=== PATIENT | female | born 2000 ===

== ENCOUNTER 2020-07-19 13:31 | Emergency (ER) | payer OTHER ==
[2020-07-19 13:44] VITALS: BP 137/100
--- NOTE | 2020-07-19 14:38 | ER Document Report ---
ED Extremity Problem, Lower - General Chief Complaint: Ankle Injury Stated Complaint: RIGHT AND LEFT ANKLE PAIN Time Seen by Provider: 07/19/20 14:24 Primary Care Provider: KRANTHI FRANZ MD [ACTIVE STAFF] - Follow up as needed Information source: Patient Notes: Patient is a 20-year-old female comes emergency room complaint of bilateral ankle and foot pain. Patient states that last night she was in a good mood she was dancing and jumping up and down on the bed she decided to jump off the bed and landed on both feet and ankles and felt a crack in her ankles. Patient states it hurt last night but she thought she go to bed and wake up this morning fine but when she got out of bed she fell to the floor because of the severe pain and discomfort. Patient states that the left ankle is worse than the right ankle. She did go to a walk-in clinic where they Justino wrapped her ankle but told her that she needed to go to ER because there radiology machine was unable to do the x-rays a needed because she had to stand for it. Patient denies any other injuries. She denies any other medical problems. TRAVEL OUTSIDE OF THE [place] IN LAST 30 DAYS: No - HPI Patient complains to provider of: Injury, Pain, Swelling Location: Ankle, Foot Occurred: This evening Where: Home Onset/Duration: Sudden, Persistent, Worse Quality of pain: Pressure, Sharp, Throbbing Severity: Severe Pain Level: 4 Context: Barefoot Recent injury: Yes Associated symptoms: [place] a crack, Unable to bear weight Exacerbated by: Movement, Walking Relieved by: Nothing - Related Data Allergies/Adverse Reactions: Penicillins Allergy (Verified 07/19/20 14:25) Past Medical History - General Information source: Patient - Social History Smoking Status: Never Smoker Frequency of alcohol use: None Drug Abuse: None Lives with: Family Family History: Reviewed & Not Pertinent Review of Systems - Review of Systems Constitutional: No symptoms reported EENT: No symptoms reported Cardiovascular: No symptoms reported Respiratory: No symptoms reported Gastrointestinal: No symptoms reported Genitourinary: No symptoms reported Female Genitourinary: No symptoms reported Musculoskeletal: See HPI, Joint pain, Joint swelling, Ankle swelling Skin: No symptoms reported Hematologic/Lymphatic: No symptoms reported Neurological/Psychological: No symptoms reported -: Yes All other systems reviewed and negative Physical Exam - Vital signs Vitals: Temp Pulse Resp BP Pulse Ox 98.3 F 119 H 16 137/100 H 98 07/19/20 13:43 07/19/20 13:43 07/19/20 13:43 07/19/20 13:43 07/19/20 13:43 Interpretation: Hypertensive, Tachycardic - Notes Notes: PHYSICAL EXAMINATION: GENERAL: Patient is a well-nourished well-developed 20-year-old female no apparent distress but does appear uncomfortable. HEAD: Atraumatic, normocephalic. EYES: Pupils equal round and reactive to light, extraocular movements intact, conjunctiva are normal. LUNGS: Breath sounds clear to auscultation bilaterally and equal. No wheezes rales or rhonchi. HEART: Regular rate and rhythm without murmurs Musculoskeletal: Examination patient very concerned bilateral ankles and feet. Examination shows the left ankle to be more swollen and tender than the right side. Patient displays good dorsalis pedal pulses bilaterally as well as good posterior tibial pulses bilaterally patient also displays good cap refill in the nailbeds of both feet. Mild tenderness noted on the low left ankle with swelling noted circumferentially with increased on the lateral aspect of the malleolus. Patient has limited flexion extension at this time secondary to swelling and pain. Right is much less more swollen again on the lateral malleoli are area there is mild edema with mild tenderness to palpation on the anterior proximal portion of the foot down into the lateral malleoli are area. Again patient has limited range of motion on the side secondary to swelling as well. NEUROLOGICAL: Exercises given reps normal speech, normal gait. Normal sensory, motor exams PSYCH: Normal mood, normal affect. SKIN: Warm, Dry, normal turgor, no rashes or lesions noted. Course - Re-evaluation Re-evalutation: 07/19/20 16:57 Patient's x-rays were negative for any acute findings. However given that the swelling on the left side is prominent I still feel there is a possibility of some ligament or tendon damage. I am putting her in a posterior OCL short leg Ortho-Glass along with a stirrup splint Ortho-Glass on that foot for stability. We will go ahead and Justino wrap the right side at this time. We will attempt to have her use crutches to see how she does. I am giving the name of the orthopedist on-call to contact his office if after 3 days she is unable to still bear weight. - Vital Signs Vital signs: Temp Pulse Resp BP Pulse Ox 98.3 F 119 H 16 137/100 H 98 07/19/20 13:43 07/19/20 13:43 07/19/20 13:43 07/19/20 13:43 07/19/20 13:43 - Laboratory Results Critical Laboratory Results Reviewed: No Critical Results - Radiology Results Critical Radiology Results Reviewed: No Critical Results Procedures - Immobilization Left Ankle Time completed: 16:58 Pre-Proc Neuro Vasc Exam: Normal Immobilizer type: Ankle stirrup, Short Leg Posterior Performed by: PCT Post-Proc Neuro Vasc Exam: Normal Alignment checked and good: Yes Right Ankle Time completed: 16:58 Pre-Proc Neuro Vasc Exam: Normal Immobilizer type: Justino wrap Performed by: PCT Post-Proc Neuro Vasc Exam: Normal Alignment checked and good: Yes Discharge - Discharge Clinical Impression: History of sprain of both ankles Condition: Stable Disposition: HOME, SELF-CARE Instructions: Justino Wrap ([facility]), Ankle Stirrup Splint ([facility]), Use of Crutches ([facility]), Ice & Elevation ([facility]), Sprained Ankle ([facility]) Additional Instructions: As we discussed we placed you in a splint that is slightly overkill to give you some stability and possibility of placing some weight down on it and not disturbing the ankle. Justino wrap the right ankle taken off before going to bed hour long periods of sitting. As we discussed ice 3 times a day to the areas. I gave you the name of orthopedic doctor occupational health and safety officer today you can contact them if after 3 days you are still unable to bear weight or the pain is still significant. Tylenol and Motrin together for aches and pains can be done or you can split them in every 4 hours. Should you have any concerns or problems return to ER for reevaluation. Forms: Elevated Blood Pressure Referrals: KRANTHI FRANZ MD [ACTIVE STAFF] - Follow up as needed
--- NOTE | 2020-07-19 16:08 | RADIOLOGY REPORT (SQ) ---
EXAM DESCRIPTION: ANKLE BILATERAL 3 VIEWS MIN IMAGES COMPLETED DATE/TIME: 07/19/2020 3:13 pm REASON FOR STUDY: pain swelling l>R COMPARISON: None. EXAM PARAMETERS: NUMBER OF VIEWS: Six views. TECHNIQUE: AP, lateral and oblique radiographic images acquired of the right and left ankle. LIMITATIONS: None. FINDINGS: MINERALIZATION: Normal. BONES: No acute fracture or dislocation. No worrisome bone lesions. JOINTS: No effusion. SOFT TISSUES: No significant soft tissue swelling. No radiopaque foreign body. OTHER: No other significant finding. IMPRESSION: NO FRACTURE. TECHNICAL DOCUMENTATION: JOB ID: [id number] [place]-72 2010 [employer]- All Rights Reserved Reading location - IP/workstation name: [employer]
--- NOTE | 2020-07-19 16:10 | RADIOLOGY REPORT (SQ) ---
EXAM DESCRIPTION: FOOT BILATERAL 3 VIEWS IMAGES COMPLETED DATE/TIME: 07/19/2020 3:13 pm REASON FOR STUDY: Jumped off bed and felt both feet/ankles crack COMPARISON: None. EXAM PARAMETERS: NUMBER OF VIEWS: Six views. TECHNIQUE: AP, lateral and oblique radiographic images acquired of the right and left foot. LIMITATIONS: None. FINDINGS: MINERALIZATION: Normal. BONES: No acute fracture or dislocation. No worrisome bone lesions. JOINTS: No effusion. SOFT TISSUES: No significant soft tissue swelling. No radiopaque foreign body. OTHER: No other significant finding. IMPRESSION: NO FRACTURE. TECHNICAL DOCUMENTATION: JOB ID: [id number] [place]-72 2010 [employer]- All Rights Reserved Reading location - IP/workstation name: [email or web address]
[2020-07-19] MEDS ORDERED: IBUPROFEN 800 MG TABLET PO ONE (16:56)
== END 2020-07-19 18:15 | disposition home or self-care (01) ==
LOC: ER 13:31
DX: S93.402A Sprain of unspecified ligament of left ankle, initial encounter (principal); S93.401A Sprain of unspecified ligament of right ankle, initial encounter; M25.571 Pain in right ankle and joints of right foot; M25.572 Pain in left ankle and joints of left foot; M79.671 Pain in right foot; M79.672 Pain in left foot; M79.89 Other specified soft tissue disorders; X58.XXXA Exposure to other specified factors, initial encounter; Y93.39 Activity, other involving climbing, rappelling and jumping off
CPT/HCPCS: 99283